=== PATIENT | male | born 1980 | race Caucasian/White ===

== ENCOUNTER 2018-12-03 18:57 | Emergency (ER) | payer OTHER ==
[~2018-12-03] VITALS: Ht 170.2 cm; Wt 62.1 kg
[~2018-12-03 18:57] MED LIST: ATI.5 PO; HAL1 PO; INHALER; QUET25TA PO; THYR30TA PO; [UNRECOGNIZED DRUG - OTHER] PO
[2018-12-03 19:31] VITALS: BP 124/73
--- NOTE | 2018-12-03 19:31 | NUR ---
PATIENT AMBULATED BACK TO ER KOBE, GCS 15, NO ACUTE DISTRESS NOTED
--- NOTE | 2018-12-03 21:34 | NUR ---
PT TAKEN TO CHAIR Hermilo.
--- NOTE | 2018-12-03 21:44 | NUR ---
PT WALKING AROUND IN HALLWAY, AGITATED, UNCOOPERATIVE. ASKED SEVERAL TIMES TO SIT DOWN AND PATIENT REFUSING TO SIT DOWN. CEE ALBERT REQUESTING TO HAVE SECURITY CALLED.
--- NOTE | 2018-12-03 21:57 | NUR ---
DR BARON EVALUATING PATIENT
[2018-12-03 22:03] VITALS: BP 119/62
== END 2018-12-03 22:02 | disposition home or self-care (01) ==
LOC: MED 18:57
DX: L03.012 Cellulitis of left finger (principal); J45.909 Unspecified asthma, uncomplicated; E07.9 Disorder of thyroid, unspecified; Z79.899 Other long term (current) drug therapy; Z91.030 Bee allergy status
CPT/HCPCS: 99283

== ENCOUNTER 2022-05-13 00:46 | Emergency (ER) | payer OTHER ==
[~2022-05-13] VITALS: Ht 165.1 cm; Wt 79.4 kg
[~2022-05-13 00:46] MED LIST changes: -HAL1 PO; +HALO1TAB99 PO
[2022-05-13 00:56] VITALS: BP 132/90
--- NOTE | 2022-05-13 00:56 | NUR ---
PT AMB TO ER BED 11.
--- NOTE | 2022-05-13 01:14 | NUR ---
42/M BIB SELF C/C MOUTH PAIN X 3WEEKS. "LOOK AT MY TOUNGUE, THAT WASNT THERE" STATED THAT THERE IS A BUMP AND HE HAS PAIN WHEN EATING. PATIENT IS AAOX4 AND AMBULATORY. DOESNT APPEAR TO BE IN DISTRESS. DENIES PAIN. DENIES PMHX, RX, ALLERGIES.
[2022-05-13] MEDS ORDERED: LIDO15SO PO (01:24)
[2022-05-13 01:32] VITALS: BP 132/90
--- NOTE | 2022-05-13 01:32 | NUR ---
Patient discharged with v/s stable. Written and verbal after care instructions given and explained. Patient alert, oriented and verbalized understanding of instructions. Ambulatory with steady gait. All questions addressed prior to discharge. ID band removed. Patient advised to follow up with PMD. Rx of LIDOCAINE given. Patient educated on indication of medication including possible reaction and side effects. Opportunity to ask questions provided and answered.
== END 2022-05-13 01:32 | disposition home or self-care (01) ==
LOC: MED 00:46
DX: S00.512A Abrasion of oral cavity, initial encounter (principal); X58.XXXA Exposure to other specified factors, initial encounter; Y93.89 Activity, other specified; Y92.89 Other specified places as the place of occurrence of the external cause; Y99.8 Other external cause status
CPT/HCPCS: 99283